=== PATIENT | male | born 1995 | race Caucasian/White ===

== ENCOUNTER 2017-01-16 21:55 | Emergency (ER) | payer OTHER ==
[2017-01-17 00:39] LABS: BASOPHIL 0 % (0-2); EOSINOPHIL 2.2 % (0-5); HCT 44.5 % (42.0-52.0); HGB 15.5 g/dl (13.2-18.0); LYMPHOCYTE 23.2 % (15-48); MCHC 34.8 g/dL (32.0-36.0); MCV 83.3 fL (78.0-100.0); MPV 10.8 fL (6.0-9.5); NEUTROPHIL 65.6 % (41-80); PLT 191 K/uL (150-400); RBC 5.34 M/uL (4.70-6.00); RDW 13.3 % (11.5-14.0); WBC 7.6 K/uL (4.0-10.5)
[2017-01-17 00:53] LABS: CREATININE 0.8 mg/dL (0.7-1.2)
== END 2017-01-17 01:06 | disposition home or self-care (01) ==
LOC: FER 21:55
PROVIDERS: Nurse Practitioner Family
DX: K02.9 Dental caries, unspecified (principal); J02.9 Acute pharyngitis, unspecified; Z88.0 Allergy status to penicillin; Z98.818 Other dental procedure status
CPT/HCPCS: 36415; 80048; 85025; 87804; 87899; 99283

== ENCOUNTER 2017-01-23 09:48 | Emergency (ER) | payer OTHER ==
[2017-01-23 11:32] LABS: BASOPHIL 0.2 % (0-2); BILIRUBIN NEGATIVE (NEGATIVE); BLOOD NEGATIVE Ery/uL (NEGATIVE); CLARITY HAZY (CLEAR); COLOR YELLOW (YELLOW); EOSINOPHIL 2.4 % (0-5); GLUCOSE (U) NORMAL (NORMAL); HCT 44.1 % (42.0-52.0); HGB 15.4 g/dl (13.2-18.0); KETONE (U) NEGATIVE (NEGATIVE); LEUKOCYTES NEGATIVE Leu/uL (NEGATIVE); MCH 29.1 pg (25.0-31.0); MCHC 34.9 g/dL (32.0-36.0); MCV 83.2 fL (78.0-100.0); MONOCYTE 10.8 % (0-12); MPV 10.7 fL (6.0-9.5); NEUTROPHIL 63.6 % (41-80); NITRITE NEGATIVE (NEGATIVE); PLT 210 K/uL (150-400); PROTEIN NEGATIVE (NEGATIVE); RDW 13.2 % (11.5-14.0); UROBILINOGEN 0.2 mg/dL (0.2-1.0); WBC 6.2 K/uL (4.0-10.5); pH 7.5 (5.0-9.0)
[2017-01-23 11:44] LABS: AMPHETAMINES NEGATIVE (NEGATIVE); BARBITURATES NEGATIVE (NEGATIVE); BENZODIAZEPINES NEGATIVE (NEGATIVE); COCAINE NEGATIVE (NEGATIVE); MARIJUANA (THC) NEGATIVE (NEGATIVE); METHADONE NEGATIVE (NEGATIVE); TRICYCLIC ANTIDEPRESSANT NEGATIVE (NEGATIVE)
[2017-01-23 11:49] LABS: TROPONIN T < 0.010 ng/mL
[2017-01-23 11:50] LABS: CREATININE 0.7 mg/dL (0.7-1.2)
== END 2017-01-23 12:14 | disposition home or self-care (01) ==
LOC: FER 09:48
PROVIDERS: Nurse Practitioner Family
DX: R07.89 Other chest pain (principal); R51 Headache; R06.02 Shortness of breath; Z88.0 Allergy status to penicillin
CPT/HCPCS: 36415; 80048; 80305; 81003; 82550; 82553; 84484; 85025; 93005

== ENCOUNTER 2017-01-31 21:46 | Emergency (ER) | payer OTHER | END 2017-01-31 22:35 | disposition left against medical advice (07) | LOC: FER 21:46 | DX: R10.9 Unspecified abdominal pain (principal); R11.2 Nausea with vomiting, unspecified; R50.9 Fever, unspecified; K21.9 Gastro-esophageal reflux disease without esophagitis; Z88.0 Allergy status to penicillin; Z90.49 Acquired absence of other specified parts of digestive tract; Z79.899 Other long term (current) drug therapy; Z53.29 Procedure and treatment not carried out because of patient's decision for other reasons | CPT/HCPCS: 99284 ==

== ENCOUNTER 2017-03-22 21:06 | Emergency (ER) | payer OTHER ==
[2017-03-22 21:31] LABS: BASOPHIL 0.1 % (0-2); EOSINOPHIL 2.3 % (0-5); HCT 44.2 % (42.0-52.0); HGB 15.8 g/dl (13.2-18.0); LYMPHOCYTE 32.6 % (15-48); MCH 29.3 pg (25.0-31.0); MCHC 35.7 g/dL (32.0-36.0); MONOCYTE 8.2 % (0-12); MPV 10.2 fL (6.0-9.5); NEUTROPHIL 56.8 % (41-80); PLT 217 K/uL (150-400); RBC 5.39 M/uL (4.70-6.00); RDW 12.9 % (11.5-14.0); WBC 7.7 K/uL (4.0-10.5)
[2017-03-22 21:51] LABS: ALBUMIN 4.9 g/dL (3.5-5.0); BILIRUBIN - TOTAL 0.3 mg/dL (0.1-1.0); CREATININE 0.8 mg/dL (0.7-1.2); GLOBULIN (CALCULATION) 3.1 g/dL (2.2-4.2); POTASSIUM 3.4 mmol/L (3.5-5.1)
[2017-03-22 22:46] LABS: BILIRUBIN NEGATIVE (NEGATIVE); BLOOD NEGATIVE Ery/uL (NEGATIVE); CLARITY CLEAR (CLEAR); COLOR YELLOW (YELLOW); GLUCOSE (U) NORMAL (NORMAL); KETONE (U) NEGATIVE (NEGATIVE); LEUKOCYTES NEGATIVE Leu/uL (NEGATIVE); NITRITE NEGATIVE (NEGATIVE); PROTEIN NEGATIVE (NEGATIVE); SPECIFIC GRAVITY <=1.005 (1.001-1.030); UROBILINOGEN 0.2 mg/dL (0.2-1.0); pH 6.5 (5.0-9.0)
== END 2017-03-22 23:19 | disposition home or self-care (01) ==
LOC: FER 21:06
PROVIDERS: Emergency Medicine Emergency Medical Services
DX: R10.9 Unspecified abdominal pain (principal); R11.0 Nausea; R63.0 Anorexia
CPT/HCPCS: 36415; 80053; 81003; 82150; 83690; 85025; C9113; J2765

== ENCOUNTER 2017-03-23 22:03 | Emergency (ER) | payer OTHER ==
[2017-03-23 22:54] LABS: BASOPHIL 0.1 % (0-2); EOSINOPHIL 0.6 % (0-5); HCT 43.4 % (42.0-52.0); HGB 15.3 g/dl (13.2-18.0); LYMPHOCYTE 11.3 % (15-48); MCH 29.3 pg (25.0-31.0); MCHC 35.3 g/dL (32.0-36.0); MONOCYTE 7.2 % (0-12); MPV 10.4 fL (6.0-9.5); NEUTROPHIL 80.8 % (41-80); PLT 213 K/uL (150-400); RBC 5.23 M/uL (4.70-6.00); WBC 10.3 K/uL (4.0-10.5)
[2017-03-23 23:07] LABS: BILIRUBIN NEGATIVE (NEGATIVE); BLOOD NEGATIVE Ery/uL (NEGATIVE); CLARITY CLEAR (CLEAR); COLOR YELLOW (YELLOW); GLUCOSE (U) NORMAL (NORMAL); KETONE (U) TRACE mg/dL (NEGATIVE); LEUKOCYTES NEGATIVE Leu/uL (NEGATIVE); NITRITE NEGATIVE (NEGATIVE); PROTEIN TRACE (LOW) mg/dL (NEGATIVE); SPECIFIC GRAVITY 1.025 (1.001-1.030); UROBILINOGEN 0.2 mg/dL (0.2-1.0)
[2017-03-23 23:08] LABS: ALBUMIN 4.5 g/dL (3.5-5.0); BILIRUBIN - TOTAL 0.4 mg/dL (0.1-1.0); CREATININE 0.7 mg/dL (0.7-1.2); GLOBULIN (CALCULATION) 2.4 g/dL (2.2-4.2); POTASSIUM 3.5 mmol/L (3.5-5.1); TOTAL PROTEIN 6.9 g/dL (6.4-8.3)
[2017-03-23 23:21] LABS: AMPHETAMINES NEGATIVE (NEGATIVE); BENZODIAZEPINES NEGATIVE (NEGATIVE); COCAINE NEGATIVE (NEGATIVE); MARIJUANA (THC) NEGATIVE (NEGATIVE)
[2017-03-23 23:22] LABS: BARBITURATES NEGATIVE (NEGATIVE); METHADONE NEGATIVE (NEGATIVE); TRICYCLIC ANTIDEPRESSANT NEGATIVE (NEGATIVE)
== END 2017-03-23 23:59 | disposition home or self-care (01) ==
LOC: FER 22:03
PROVIDERS: Emergency Medicine
DX: R11.2 Nausea with vomiting, unspecified (principal); R10.9 Unspecified abdominal pain; K21.9 Gastro-esophageal reflux disease without esophagitis; Z88.0 Allergy status to penicillin; Z79.899 Other long term (current) drug therapy
CPT/HCPCS: 36415; 74022; 80053; 80305; 81001; 85025; 99284

== ENCOUNTER 2017-03-29 19:05 | Emergency (ER) | payer OTHER ==
[2017-03-29 23:00] LABS: BASOPHIL 0.1 % (0-2); HCT 43.6 % (42.0-52.0); HGB 15.6 g/dl (13.2-18.0); LYMPHOCYTE 22.4 % (15-48); MCH 29.3 pg (25.0-31.0); MCHC 35.8 g/dL (32.0-36.0); MONOCYTE 10.9 % (0-12); MPV 10.7 fL (6.0-9.5); NEUTROPHIL 64.6 % (41-80); PLT 219 K/uL (150-400); RBC 5.32 M/uL (4.70-6.00); RDW 12.9 % (11.5-14.0); WBC 7.4 K/uL (4.0-10.5)
[2017-03-29 23:17] LABS: ALBUMIN 4.8 g/dL (3.5-5.0); BILIRUBIN - TOTAL 0.6 mg/dL (0.1-1.0); CREATININE 0.8 mg/dL (0.7-1.2); GLOBULIN (CALCULATION) 2.3 g/dL (2.2-4.2); POTASSIUM 3.8 mmol/L (3.5-5.1); TOTAL PROTEIN 7.1 g/dL (6.4-8.3)
== END 2017-03-30 00:15 | disposition home or self-care (01) ==
LOC: FER 19:05
PROVIDERS: Emergency Medicine Emergency Medical Services
DX: K04.7 Periapical abscess without sinus (principal); R11.2 Nausea with vomiting, unspecified; E86.9 Volume depletion, unspecified; K21.9 Gastro-esophageal reflux disease without esophagitis; Z88.0 Allergy status to penicillin; Z90.49 Acquired absence of other specified parts of digestive tract; Z79.899 Other long term (current) drug therapy
CPT/HCPCS: 36415; 71020; 80053; 84145; 85025; 87040; J2405

== ENCOUNTER 2017-04-02 20:58 | Emergency (ER) | payer OTHER ==
[2017-04-02 21:55] LABS: BILIRUBIN NEGATIVE (NEGATIVE); BLOOD NEGATIVE Ery/uL (NEGATIVE); CLARITY CLEAR (CLEAR); COLOR YELLOW (YELLOW); GLUCOSE (U) NORMAL (NORMAL); KETONE (U) NEGATIVE (NEGATIVE); LEUKOCYTES NEGATIVE Leu/uL (NEGATIVE); NITRITE NEGATIVE (NEGATIVE); PROTEIN NEGATIVE (NEGATIVE); SPECIFIC GRAVITY <=1.005 (1.001-1.030); UROBILINOGEN 0.2 mg/dL (0.2-1.0); pH 6.5 (5.0-9.0)
[2017-04-02 22:02] LABS: BASOPHIL 0.2 % (0-2); EOSINOPHIL 2.1 % (0-5); HCT 44.4 % (42.0-52.0); HGB 16.5 g/dl (13.2-18.0); MCHC 37.2 g/dL (32.0-36.0); MCV 80.7 fL (78.0-100.0); MONOCYTE 11.5 % (0-12); MPV 10.4 fL (6.0-9.5); NEUTROPHIL 66.2 % (41-80); PLT 205 K/uL (150-400); RDW 13.1 % (11.5-14.0); WBC 6.3 K/uL (4.0-10.5)
[2017-04-02 22:20] LABS: ALBUMIN 5.1 g/dL (3.5-5.0); BILIRUBIN - TOTAL 0.7 mg/dL (0.1-1.0); CREATININE 0.8 mg/dL (0.7-1.2); GLOBULIN (CALCULATION) 2.8 g/dL (2.2-4.2); POTASSIUM 3.4 mmol/L (3.5-5.1); TOTAL PROTEIN 7.9 g/dL (6.4-8.3)
== END 2017-04-02 23:35 | disposition home or self-care (01) ==
LOC: FER 20:58
PROVIDERS: Nurse Practitioner Family
DX: R10.9 Unspecified abdominal pain (principal); K21.9 Gastro-esophageal reflux disease without esophagitis; Z88.0 Allergy status to penicillin; Z79.899 Other long term (current) drug therapy
CPT/HCPCS: 36415; 80053; 81003; 82150; 83690; 85025; J2405

== ENCOUNTER → 2017-04-18 | Day surgery (SDC) | payer OTHER ==
[~2017-04-18] VITALS: Ht 175.3 cm; Wt 71.4 kg
[2017-04-18 08:31] LABS: BASOPHIL 0.2 % (0-2); EOSINOPHIL 3.2 % (0-5); HCT 44.5 % (42.0-52.0); HGB 15.9 g/dl (13.2-18.0); MCH 29.6 pg (25.0-31.0); MCHC 35.7 g/dL (32.0-36.0); MCV 82.9 fL (78.0-100.0); MONOCYTE 10.3 % (0-12); MPV 11.5 fL (6.0-9.5); NEUTROPHIL 52.3 % (41-80); PLT 189 K/uL (150-400); RBC 5.37 M/uL (4.70-6.00); RDW 13.1 % (11.5-14.0); WBC 5.9 K/uL (4.0-10.5)
== END | disposition home or self-care (01) ==
LOC: FAS 07:20
PROVIDERS: Oral & Maxillofacial Surgery
DX: K02.9 Dental caries, unspecified (principal); J45.909 Unspecified asthma, uncomplicated; F41.9 Anxiety disorder, unspecified; F32.9 Major depressive disorder, single episode, unspecified; Z88.0 Allergy status to penicillin; Z88.1 Allergy status to other antibiotic agents; Z90.49 Acquired absence of other specified parts of digestive tract; Z79.899 Other long term (current) drug therapy
CPT/HCPCS: 36415; 85025; J1100; J2405; J2704; J2710; J3010

== ENCOUNTER 2017-07-24 10:20 | Emergency (ER) | payer OTHER ==
[2017-07-24 11:01] LABS: BILIRUBIN NEGATIVE (NEGATIVE); BLOOD NEGATIVE Ery/uL (NEGATIVE); CLARITY CLEAR (CLEAR); COLOR STRAW (YELLOW); GLUCOSE (U) NORMAL (NORMAL); KETONE (U) NEGATIVE (NEGATIVE); LEUKOCYTES NEGATIVE Leu/uL (NEGATIVE); NITRITE NEGATIVE (NEGATIVE); PROTEIN NEGATIVE (NEGATIVE); SPECIFIC GRAVITY <=1.005 (1.001-1.030); UROBILINOGEN 0.2 mg/dL (0.2-1.0)
[2017-07-24 11:01] LABS: BASOPHIL 0.2 % (0-2); EOSINOPHIL 2.3 % (0-5); HCT 43.3 % (42.0-52.0); HGB 15.2 g/dl (13.2-18.0); LYMPHOCYTE 26.5 % (15-48); MCH 29.1 pg (25.0-31.0); MCHC 35.1 g/dL (32.0-36.0); MONOCYTE 10.3 % (0-12); NEUTROPHIL 60.7 % (41-80); PLT 180 K/uL (150-400); RBC 5.22 M/uL (4.70-6.00); RDW 12.7 % (11.5-14.0); WBC 4.9 K/uL (4.0-10.5)
[2017-07-24 11:17] LABS: CREATININE 0.9 mg/dL (0.7-1.2); POTASSIUM 3.7 mmol/L (3.5-5.1)
== END 2017-07-24 12:19 | disposition home or self-care (01) ==
LOC: FER 10:20
PROVIDERS: Nurse Practitioner Family
DX: F41.9 Anxiety disorder, unspecified (principal); R51 Headache; J45.909 Unspecified asthma, uncomplicated; Z87.19 Personal history of other diseases of the digestive system; Z88.0 Allergy status to penicillin; Z79.899 Other long term (current) drug therapy
CPT/HCPCS: 36415; 80048; 81003; 82150; 83690; 85025; 99283

== ENCOUNTER 2022-01-27 14:03 | Emergency (ER) | payer OTHER ==
[~2022-01-27 14:03] MED LIST: AZITHROMYCIN250 MG PO; BUSPIRONE HCL15 MG PO; CARAFATE S500 MG/TSP PO; CLARITIN10 M2 PO; CLEOCIN300 MG PO; COMPAZINE10 MG PO; CYCLOBENZAPRINE10 MG PO; DICLOFENAC SODI75 MG PO; FLEXERIL10 MG PO; MEDROL 4MG DOSEP4 MG PO; METRONIDAZOLE250 MG PO; MOTRIN600 MG PO; NEXIUM 40MG CAP40 MG PO; PREDNISONE 20MG20 MG PO; PRILOSEC20 MG PO; PROTONIX 40MG T40 MG PO; REGLAN10 MG PO; ROBAXIN500 MG PO; TESSALON PERLE100 M1 PO; TRAZODONE 100M100 MG PO; VENTOLIN HFA IN18 GM INH; ZANTAC150 MG PO; ZOFRAN ODT4 MG BU; ZOFRAN4 MG PO; ZOLOFT50 MG PO; stomach med
[2022-01-27 14:58] LABS: BASOPHIL 0.2 % (0-2); EOSINOPHIL 2.4 % (0-5); HCT 42.9 % (42.0-52.0); HGB 13.7 g/dl (13.2-18.0); LYMPHOCYTE 28.1 % (15-48); MCH 26.2 pg (25.0-31.0); MCHC 31.9 g/dL (32.0-36.0); MONOCYTE 10.1 % (0-12); MPV 11.1 fL (6.0-9.5); NRBC 0; PLT 239 K/uL (150-400); RBC 5.23 M/uL (4.70-6.00); RDW 14.6 % (11.5-14.0)
[2022-01-27 15:19] LABS: ALBUMIN 4.1 g/dL (3.4-5.0); ALKALINE PHOSHATASE 100 U/L (46-116); ALT 51 U/L (16-63); AST 26 U/L (15-37); BILIRUBIN - TOTAL 0.3 mg/dL (0.2-1.0); BUN 11 mg/dL (7-18); BUN/CREAT RATIO (CALC) 11.2 RATIO; CHLORIDE 101 mmol/L (98-107); CO2 (BICARBONATE) 25 mmol/L (21-32); CREATININE 0.98 mg/dL (0.67-1.17); GLOBULIN (CALCULATION) 3.7 g/dL; GLUCOSE 194 mg/dL (74-106); TOTAL PROTEIN 7.8 g/dL (6.4-8.2)
== END 2022-01-27 18:25 | disposition home or self-care (01) ==
LOC: FER 14:03
PROVIDERS: Emergency Medicine
DX: T40.711A Poisoning by cannabis, accidental (unintentional), initial encounter (principal)
CPT/HCPCS: 36415; 80053; 84484; 85025; 93005; J2060; J7030